=== PATIENT | male | born 1960 | race Caucasian/White ===

== ENCOUNTER 2025-02-21 15:34 | Emergency (ER) | payer MEDICARE, SELFPAY ==
[2025-02-21 15:45] VITALS: BP 160/93
[2025-02-21 16:00] LABS: Hematocrit 43.6 % (39.0-52.0); Hemoglobin 14.8 g/dL (13.0-18.0); Mean Corp Hgb Conc. 33.9 g/dL (33.0-37.0); Mean Corpuscular Volume 85.3 fL (80.0-94.0); Nucleated Red Blood Cells % 0 % (-); Platelet Count 165 10^3/uL (130-400); Red Cell Dist. Width 12.8 % (11.5-14.5)
[2025-02-21 16:14] LABS: ALT (SGPT) 69 U/L (0-50); AST (SGOT) 33 U/L (17-59); Albumin 4.7 g/dl (3.5-5.0); Alkaline Phosphatase 51 U/L (38-126); Blood Urea Nitrogen 18 mg/dl (9-20); Calcium 9.4 mg/dl (8.4-10.2); Carbon Dioxide 26 mmol/L (22-30); Chloride 104 mmol/L (98-107); Glucose 174 mg/dl (70-99); Potassium 4.2 mmol/L (3.5-5.1); Sodium 139 mmol/L (135-145); Total Protein 7.9 g/dl (6.3-8.2); eGFR > 60.00
[2025-02-21 16:41] LABS: Troponin I 0.012 ng/ml
--- NOTE | 2025-02-21 19:16 | ED.GENMED ---
History of Present Illness
<Moshe Che PA-C - Last Filed: 02/21/25 19:21>
General
Chief Complaint: Abnormal Lab Value
Source: patient
Exam Limitations: none
Time Seen by Provider: 02/21/25 18:47
History of Present Illness
History of Present Illness:
64-year-old male with history of hypertension presents complaining of intermittent chest discomfort over the past couple weeks. He was actually seen by the family doctor today to go over routine blood work and he mentioned his symptoms. They
performed an EKG which was abnormal and they sent him here for evaluation. He currently denies any chest pain. The discomfort he describes as short lasting for couple seconds and clears typically when he coughs. He describes it as a different
heartbeat. He also describes some intolerance to exertion. No fevers or rash.
Past History
<Moshe Che PA-C - Last Filed: 02/21/25 19:21>
Past History
ED Past Medical History: HTN; Negative Arrthythmia, CAD or NIDDM
ED Past Surgical History: None
Social History
Tobacco: Non-smoker
Alcohol: None
Drug: None
Living: with family
Employment: Employed
Family History
Family History: Diabetes and Hypertension
Phy Exam
<Moshe Che PA-C - Last Filed: 02/21/25 19:21>
Physical Exam
Physical Exam:
General: Well-appearing male no acute respiratory distress
HEENT: Normocephalic atraumatic
Heart: RRR, no murmurs.
Lungs: CTA bilaterally
Extremities: No cyanosis or edema
Skin warm no rash
A
Course
<Moshe Che PA-C - Last Filed: 02/21/25 19:21>
Orders/Labs/Results
Orders:
Orders
02/21/25 15:35
ECG [Electrocardiogram (*1)] Urgent
Reason for Study: Other
Other Reason for Exam: abnormal ecg
02/21/25 15:36
EKG- Treatment ONCE
02/21/25 15:51
Complete Blood Count/With Diff Urgent
Comprehensive Metabolic Panel Urgent
Lyme Progressive Urgent
Comment: ADD ON
02/21/25 16:07
Troponin I Urgent
02/21/25 19:17
Add On- LAB Urgent
Tests Added?: lyme progressive
Abnormal Lab Results
02/21/25
15:51
MPV 11.2 H fL
(7.4-10.4)
Immature Gran % 0.6 H %
(0-0.5)
Glucose 174 H mg/dl
(70-99)
ALT 69 H U/L
(0-50)
02/21/25 15:51
02/21/25 15:51
Vital Signs
Initial and Last Documented VS:
Initial Vital Signs
Temp Pulse Resp BP Pulse Ox
98.4 F 78 16 160/93 98
02/21/25 15:45 02/21/25 15:45 02/21/25 15:45 02/21/25 15:45 02/21/25 15:45
Last Documented Vital Signs
Temp Pulse Resp BP Pulse Ox
98.4 F 78 16 160/93 98
02/21/25 15:45 02/21/25 15:45 02/21/25 15:45 02/21/25 15:45 02/21/25 19:17
Chelsielt;Tarun Phan, DO - Last Filed: 02/21/25 19:27>
Orders/Labs/Results
Orders:
Orders
02/21/25 15:35
ECG [Electrocardiogram (*1)] Urgent
Reason for Study: Other
Other Reason for Exam: abnormal ecg
02/21/25 15:36
EKG- Treatment ONCE
02/21/25 15:51
Complete Blood Count/With Diff Urgent
Comprehensive Metabolic Panel Urgent
Lyme Progressive Urgent
Comment: ADD ON
02/21/25 16:07
Troponin I Urgent
02/21/25 19:17
Add On- LAB Urgent
Tests Added?: lyme progressive
Abnormal Lab Results
02/21/25
15:51
MPV 11.2 H fL
(7.4-10.4)
Immature Gran % 0.6 H %
(0-0.5)
Glucose 174 H mg/dl
(70-99)
ALT 69 H U/L
(0-50)
02/21/25 15:51
02/21/25 15:51
Vital Signs
Initial and Last Documented VS:
Initial Vital Signs
Temp Pulse Resp BP Pulse Ox
98.4 F 78 16 160/93 98
02/21/25 15:45 02/21/25 15:45 02/21/25 15:45 02/21/25 15:45 02/21/25 15:45
Last Documented Vital Signs
Temp Pulse Resp BP Pulse Ox
98.4 F 78 16 160/93 98
02/21/25 15:45 02/21/25 15:45 02/21/25 15:45 02/21/25 15:45 02/21/25 19:17
<Moshe Che PA-C - Last Filed: 02/21/25 19:21>
MDM/Problems Addressed
Differential Diagnosis Includes:
Chest discomfort, atypical in nature. Consider palpitations versus ACS. The symptoms are lasting seconds and going away atypical of PE or dissection. EKG here shows sinus rhythm with left axis but no ischemic changes. Troponin undetectable.
Patient has been having symptoms for weeks. No need to repeat. Discussed with emergency room attending. No indication for admission. Will follow-up with cardiology
<Moshe Che PA-C - Last Filed: 02/21/25 19:21>
*Pulse Oximetry
SaO2: 98
Oxygen Mode of Delivery: Room air
Patient hypoxic: no
*Critical Care Note
Total Time (30-74mins, 75-104mins- exclusive of procedures): Not Applicable
ED Attending Note
<Moshe Che PA-C - Last Filed: 02/21/25 19:21>
-
Portions of this chart may have been created with voice recognition software.� Occasional wrong word or��sound alike� substitutions may have occurred due to the inherent limitations of voice recognition software.
<Tarun Phan DO - Last Filed: 02/21/25 19:27>
ED Attending Note
Patient seen and examined by attending physician: Yes
I performed the substantive portion of visit, reviewed & personally made and approve the management plan that is documented in note by myself or MICH.: Yes
ED Attending Note:
Seen with PA examined independently 64-year-old male intermittent chest discomfort for 2 weeks, lasts a few seconds improves with taking a deep breath or cough, EKG troponin noted, prior stress test noted. Stable for outpatient follow-up
Discharge Plan
Departure
Patient Disposition: Home (Routine Discharge)
Date of Disposition: 02/21/25
Time of Disposition: 19:20
Patient with high blood pressure during this ER visit?: No
Discharge Problem:
Chest pain
Instructions: Chest Pain DCA Follow Up
Prescriptions:
No Action
aspirin 81 MG tablet,delayed release (DR/EC)
81 mg PO DAILY
losartan 50 MG tablet
100 mg PO DAILY
amlodipine 10 MG tablet
10 mg PO DAILY
Referrals:
Jojo Man PA-C [Family Provider, Family Practice]
Activity Restrictions/Additional Instructions:
Please return here for worsening symptoms otherwise follow-up with cardiology. They should give you a call for a follow-up appointment
Discharge Date and Time
Print Language: GREEK
[2025-02-22 13:53] LABS: Lyme Antibody Screen, EIA Negative (Negative)
== END 2025-02-21 19:34 | disposition home or self-care (01) ==
LOC: EMR 15:34
PROVIDERS: Emergency Medicine; EMERGENCY PHYSICIAN Emergency Medicine; FAMILY PHYSICIAN Physician Assistant Medical
DX: R07.9 Chest pain, unspecified (principal); E11.9 Type 2 diabetes mellitus without complications; I10 Essential (primary) hypertension
CPT/HCPCS: 99284; 80053; 84484; 85025; 86618; 93005

== ENCOUNTER → 2025-03-11 10:42 | Outpatient (REF) | payer MEDICARE, OTHER, SELFPAY | LOC: HWRAD 10:42 | PROVIDERS: ATTENDING PHYSICIAN Internal Medicine Cardiovascular Disease; FAMILY PHYSICIAN Family Medicine | DX: E78.2 Mixed hyperlipidemia (principal) | CPT/HCPCS: 75571 ==